=== PATIENT | male | born 1975 | race Caucasian/White ===

== ENCOUNTER 2023-06-02 05:45 | Emergency (ER) | payer OTHER ==
--- NOTE | 2023-06-02 07:04 | ED Physician Documentation ---
PD HPI UPPER EXT INJURY - Stated complaint Stated Complaint: L FINGER INJ - Chief complaint Chief Complaint: General - History obtained from History obtained from: Patient - History of Present Illness Location: Left, Finger Type of injury: Other (stung by bee 1 1/2 days ago with swelling of hand to finger. The finger got more swollen last night distal to his wedding ring and t he finger is hurting a lot now due to swelling. Unable to get ring off.) Review of Systems Neurologic: denies: Focal weakness, Numbness PD PAST MEDICAL HISTORY - Allergies Allergies/Adverse Reactions: Allergies Allergy/AdvReac Type Severity Reaction Status Date / Time No Known Drug Allergies Allergy Verified 06/02/23 05:56 PD ED PE NORMAL - Vitals Vital signs reviewed: Yes - General General: Alert and oriented X 3, Well developed/nourished - Derm Derm: Normal color, Warm and dry - Extremities Extremities: Other (left ring finger with thick hard metal ring. Distal to iit is swelling and some engorged reddish color to tissue. Still with cap refill in tip. Has sensation to touch distal. ) - Neuro Neuro: No motor deficit, No sensory deficit Results - Vitals Vitals: Vital Signs - 24 hr 06/02/23 06/02/23 05:53 07:52 Temperature 36.4 C L 36.5 C Heart Rate 74 72 Respiratory 16 16 Rate Blood Pressure 138/91 H 133/88 H O2 Saturation 96 98 Oxygen O2 Source Room air Procedures - General procedure General procedure: Ring rremoval with battery powered ring cutter. The ring is a hard metal (he was not sure if stainless steel or titanium) and the cutter took awhile to get through but did finally at two points opposite on the ring to bivalve it. Departure - Departure Disposition: 01 Home, Self Care Clinical Impression: Tight ring on finger, Bee sting reaction Condition: Stable Record reviewed to determine appropriate education?: Yes Comments: Cool towels to the finger today to help reduce some of the swelling. Sorry it took so long to cut through that. Forms: PCP List Discharge Date/Time: 06/02/23 07:52
[2023-06-02 08:03] VITALS: BP 133/88; O2SAT 98
== END 2023-06-02 07:52 | disposition home or self-care (01) ==
LOC: ED 05:45
DX: T63.441A Toxic effect of venom of bees, accidental (unintentional), initial encounter (principal)
CPT/HCPCS: 99281; 99283

== ENCOUNTER 2024-04-07 14:21 | Outpatient (CLI) | payer OTHER ==
--- NOTE | 2024-04-07 20:58 | MRI Report ---
PROCEDURE: Knee RT WO INDICATIONS: R KNEE PAIN TECHNIQUE: Noncontrast sagittal PD fast spin echo and T2 fast spin echo with fat saturation, sagittal 3-D spoile d GE with fat saturation; coronal T1 spin echo and PD fast spin echo with fat saturation, and axial P D fast spin echo with fat saturation through the knee. COMPARISON: None. FINDINGS: Image quality: Excellent. Anterior cruciate ligament: Intact. Posterior cruciate ligament: Intact. Medial collateral ligament: Mild edema adjacent to the midportion of the medial collateral ligament may indicate a low-grade sprain. Lateral collateral ligament: Intact. Medial meniscus: Mild intrasubstance signal is seen without a discrete tear, most compatible with in trasubstance degeneration. Lateral meniscus: Intact. Medial and lateral tendons: The semimembranosus tendon insertions appear intact. Visualized portion s of the pes anserinus tendons appear normal. The popliteus tendon appears intact. Iliotibial band appears normal. Anterior structures: The patellar tendon and the distal quadriceps tendon appear intact. Shallow tro chlear groove with mild lateral patellar subluxation, likely due to congenital variation and/or osseo us remodeling. No edema in the infrapatellar fat pad. Bones: No acute trabecular bone injury or fracture. Medial femorotibial cartilage: Full-thickness cartilage loss is seen in the weightbearing portion of the medial femoral condyle with subchondral edema as well as subchondral and marginal osteophytes. Lateral femorotibial cartilage: Full-thickness cartilage defect is seen in the central weightbearing portion of the lateral tibial plateau. There is high-grade and full thickness cartilage loss in the central posterior weightbearing portion of the lateral femoral condyle with areas of subchondral oste ophyte formation and marginal osteophytes. Patellofemoral cartilage: Full-thickness cartilage loss is seen at the lateral femoral trochlea and lateral patellar facet with subchondral edema and marginal osteophytes as well as remodeling of the a rticular surfaces. Soft tissues: Moderate joint effusion is present. Suspected 6 mm loose body anterior to the lateral femoral trochlea and in the lateral aspect of the suprapatellar recess. There is a trace medial popl iteal cyst. Lobular cyst measuring 2.9 x 1.1 x 3.2 cm posterior intercondylar notch may represent a g anglion cyst, parameniscal cysts, or loculated joint fluid. The musculature surrounding the knee is n ormal in bulk. IMPRESSION: 1.Areas of full-thickness cartilage loss are seen in all 3 compartments with subchondral edema, subch ondral osteophyte formation, and tricompartmental marginal osteophytes. 2.Low-grade sprain of the mid medial collateral ligament. 3.Intrasubstance degeneration in the medial meniscus without a discrete tear. 4.Shallow trochlear groove with lateral patellar tilting and mild lateral patellar subluxation. 5.Moderate joint effusion. Lobular cyst posterior intercondylar notch may represent a ganglion cyst o r parameniscal cysts versus loculated joint fluid. Reviewed by: Juan Francisco Isbell MD on 04/07/2024 8:57 PM PDT Approved by: Juan Francisco Isbell MD on 04/07/2024 8:57 PM PDT Station ID: [id number]
== END 2024-04-07 14:22 | disposition home or self-care (01) ==
LOC: DI 14:21
PROVIDERS: ATTEND Physician Assistant
DX: M23.91 Unspecified internal derangement of right knee (principal); S83.411A Sprain of medial collateral ligament of right knee, initial encounter; M23.8X1 Other internal derangements of right knee; S83.011A Lateral subluxation of right patella, initial encounter; M25.461 Effusion, right knee; M25.861 Other specified joint disorders, right knee